=== PATIENT | female | born 1955 | race Asian ===

== ENCOUNTER 2022-08-24 06:04 | Emergency (ER) | payer MEDICARE, OTHER ==
[~2022-08-24] VITALS: Ht 149.8 cm; Wt 45.3 kg
--- NOTE | 2022-08-24 06:15 | ED Back Pain ---
General Stated Complaint: BACK PAIN Source of Information: Patient Exam Limitations: No Limitations History of Present Illness Date Seen by Provider: Aug 24, 2022 Time Seen by Provider: 06:07 Initial Comments 66-year-old female with no pertinent past medical history coming in due to bilateral flank pain radiating to her suprapubic region. Started on Tuesday, went to the urgent care and had a urinalysis done which was reportedly normal. Was sent home with Flexeril and meloxicam which she states have not been helping. Denies really ever having pain like this before. Denies any trauma, dysuria, hematuria, fever, chest pain, shortness of breath, weakness, numbness, vaginal discharge, or any other concerns. Allergies and Home Medications Allergies Coded Allergies: codeine (Verified Allergy, Unknown, 08/24/22) ondansetron (Verified Allergy, Unknown, 08/24/22) Patient Home Medication List Home Medication List Reviewed: Yes Gabapentin (Gabapentin) 100 Mg Capsule, 100 MG PO Q8H Prescribed by: GABRIELLE PATEL on 08/24/22 0700 Lidocaine (Lidocaine 5% Patch) 5 % Adh..patch, 1 EACH TP Q12H PRN for Neuropathic pain Prescribed by: GABRIELLE PATEL on 08/24/22 0700 Prednisone (Prednisone) 20 Mg Tab, 40 MG PO DAILY Prescribed by: GABRIELLE PATEL on 08/24/22 0700 Review of Systems Constitutional: No fever EENTM: no symptoms reported Respiratory: no symptoms reported Cardiovascular: no symptoms reported Gastrointestinal: no symptoms reported Genitourinary: no symptoms reported Musculoskeletal: see HPI Skin: no symptoms reported Psychiatric/Neurological: No Symptoms Reported All Other Systems Reviewed Negative Unless Noted: Yes Past Odlrsgv-Pmpgxh-Tylpba Hx Patient Social History Tobacco Use?: No Substance use?: No Alcohol Use?: No Past Medical History Surgeries: Yes Thyroidectomy Physical Exam Vital Signs Vital Signs - First Documented 08/24/22 06:10 Temp 37.0 Pulse 94 Resp 18 B/P (MAP) 143/94 (110) Pulse Ox 99 O2 Delivery Room Air Capillary Refill : Height, Weight, BMI Height: '" Weight: lbs. oz. kg; BMI Method: General Appearance: WD/WN, Mild Distress HEENT: PERRL/EOMI, Normal ENT Inspection, Pharynx Normal Neck: Full Range of Motion, Normal Inspection, Non Tender, Supple Cardiovascular: Regular Rate, Rhythm, No Edema, Normal Peripheral Pulses Respiratory: Chest Non Tender, Lungs Clear, Normal Breath Sounds, No Accessory Muscle Use, No Respiratory Distress Gastrointestinal: Normal Bowel Sounds, Non Tender; No Distended, No Guarding Back: Normal Inspection, CVA Tenderness (L), CVA Tenderness (R) Extremity: Normal Capillary Refill, Normal Inspection, Normal Range of Motion, Non Tender, No Calf Tenderness, No Pedal Edema Neurologic/Psychiatric: Alert, No Motor/Sensory Deficits, Normal Mood/Affect Skin: Normal Color, Warm/Dry Lymphatic: No Adenopathy Progress/Results/Core Measures Results/Orders Lab Results Laboratory Tests Test 08/24/22 06:28 Range/Units Urine Color YELLOW Urine Clarity CLEAR Urine pH 6.0 5-9 Urine Specific [place] 1.010 L 1.016-1.022 Urine Protein NEGATIVE NEGATIVE Urine Glucose (UA) NEGATIVE NEGATIVE Urine Ketones NEGATIVE NEGATIVE Urine Nitrite NEGATIVE NEGATIVE Urine Bilirubin NEGATIVE NEGATIVE Urine Urobilinogen 0.2 < = 1.0 MG/DL Urine Leukocyte Esterase NEGATIVE NEGATIVE Urine RBC (Auto) NEGATIVE NEGATIVE Urine RBC NONE /HPF Urine WBC 0-2 /HPF Urine Squamous Epithelial Cells RARE /HPF Urine Crystals NONE /LPF Urine Bacteria NEGATIVE /HPF Urine Casts PRESENT /LPF Urine Hyaline Casts 5-10 H /LPF Urine Mucus LARGE H /LPF Urine Culture Indicated NO My Orders Orders - GABRIELLE PATEL MD Ct Abdomen/Pelvis Wo (08/24/22 06:16) Ua Culture If Indicated (08/24/22 06:16) Ketorolac Injection (Toradol Injection) (08/24/22 06:30) Hydrocodone/Apap 5/325 Tablet (Lortab 5 (08/24/22 06:30) Ondansetron Oral Dissolve Tab (Zofran (08/24/22 06:16) Medications Given in ED Current Medications Medications Dose Ordered Sig/Julian Route Start Time Stop Time Status Last Admin Dose Admin Acetaminophen/ Hydrocodone Bitart 1 ea ONCE ONCE PO 08/24/22 06:30 08/24/22 06:31 DC 08/24/22 06:23 1 EA Ketorolac Tromethamine 15 mg ONCE ONCE IM 08/24/22 06:30 08/24/22 06:31 DC 08/24/22 06:22 15 MG Vital Signs/I&O 12/20/22 12/20/22 06:10 07:02 Temp 37.0 37.0 Pulse 94 94 Resp 18 18 B/P (MAP) 143/94 (110) 143/94 Pulse Ox 99 99 O2 Delivery Room Air Room Air Progress Progress Note : Progress Note 66-year-old female presenting for low back pain. ABCs were intact and vitals were stable on presentation. Physical exam with some CVA tenderness bilaterally. She has no midline tenderness, no history of trauma, no fever, no IV drug use, no history of cancer, no recent weight loss, no weakness, no numbness, and otherwise no red flags for low back pain. It was difficult to assess if this was musculoskeletal in nature versus potentially something such as kidney stones. Her abdomen was soft and with no pain. No urinary symptoms. Urinalysis without evidence of infection. CT abdomen pelvis negative for kidney stones or other acute abnormalities. The patient was given IM Toradol and hydrocodone while waiting for her work-up. I believe she stable for discharge with outpatient follow-up. She was sent home with strict return precautions. I recommended follow-up with orthopedics as well as her PCP as an outpatient. Diagnostic Imaging Diagonstic Imaging: CT (abd/pelvis) Comments [facility], [place] NAME: SHAWN MAYS [facility] REC#: [id number] PT STATUS: REG ER : 1955 PHYSICIAN: GABRIELLE PATEL MD ADMIT DATE: 08/24/22/ER FS Draft Date of Exam:08/24/22 CT ABDOMEN/PELVIS WO EXAMINATION: CT abdomen and pelvis without contrast. TECHNIQUE: Multiple contiguous axial images were obtained through the abdomen and pelvis without the use of intravenous contrast. All CT scans use one or more of the following dose optimizing techniques: automated exposure control, MA and/or KvP adjustment based on patient size and exam type or iterative reconstruction. HISTORY: low back pain radiating to suprapubic region COMPARISON: None available. FINDINGS: Lung bases: The lung bases are clear. Solid organs: The liver is normal. The gallbladder is surgically absent. There is no biliary ductal dilation. Pancreas is normal. Spleen is normal. Adrenal glands are normal. The kidneys are normal without visualized calculus or hydronephrosis. Bowel: The stomach and small bowel are normal without obstruction. The colon is unremarkable. No findings of acute appendicitis. Peritoneum: There is no intraperitoneal free fluid or free air. No suspicious lymphadenopathy. Vasculature: Normal without aneurysm. Musculoskeletal: No suspicious osseous lesion or compression fracture. Pelvis: The uterus is surgically absent. No adnexal mass. The urinary bladder is normal. IMPRESSION: 1. No acute abnormality in the abdomen or pelvis. Dictated on workstation # [id number] Dict: 08/24/2233 Trans: 08/24/2246 [facility] [id number] Interpreted by: JANELLE WISE DO Electronically signed by: Departure Impression Primary Impression: Back pain Qualified Codes: M54.50 - Low back pain, unspecified Disposition: 01 HOME, SELF-CARE Condition: Stable Departure-Patient Inst. Decision time for Depature: 07:05 Referrals: [facility] Patient Instructions: Low Back Pain (DC) Add. Discharge Instructions: Fortunately the CT scan does not show any significant abnormality means it is likely related to typical musculoskeletal causes for low back pain. Please follow-up with [facility] here in [email or web address] regarding this. Medicines were sent to your pharmacy to try to help with this for the next several days. Please take the medicines you are already prescribed from the urgent care on top of the medicines that we are prescribing you to try to help with the discomfort. Most low back pain takes roughly 2 weeks to start feeling better. Try to do some gentle stretching and movement at home. Scripts Prednisone (Prednisone) 20 Mg Tab 40 MG PO DAILY for 3 Days, #6 TAB 0 Refills Prov: GABRIELLE PATEL MD 08/24/22 Lidocaine (Lidocaine 5% Patch) 5 % Adh..patch 1 EACH TP Q12H PRN for Neuropathic pain MDD 2 for 14 Days, #28 PATCH 2 patches max for 12 hours, then 12 hours patch-free period. Prov: GABRIELLE PATEL MD 08/24/22 Gabapentin (Gabapentin) 100 Mg Capsule 100 MG PO Q8H for Neuropathic pain for 14 Days, #42 CAP Prov: GABRIELLE PATEL MD 08/24/22 Work/School Note: Work Release Form Date Seen in the Emergency Department: Aug 24, 2022 Return to Work: Aug 25, 2022 Restrictions: No Restrictions GABRIELLE PATEL MD Aug 24, 2022 06:15
[2022-08-24] MEDS: ONDANSETRON 4 MG (ZOFRAN) ORAL DISSOLVE TAB PO STA ×2 (06:22→06:34)
[2022-08-24] MEDS ORDERED: KETOROLAC 15 MG/ML VIAL IM ONE (06:30)
[2022-08-24] MEDS ORDERED: HYDROcodone/APAP 5 MG/325 MG (LORTAB) TAB PO ONE (06:30)
[2022-08-24 06:39] LABS: BILIRUBIN,URINE NEGATIVE (NEGATIVE); CLARITY,URINE CLEAR; COLOR,URINE YELLOW; GLUCOSE, URINE (UA) NEGATIVE (NEGATIVE); KETONES,URINE NEGATIVE (NEGATIVE); LEUKOCYTE ESTERASE ,URINE NEGATIVE (NEGATIVE); NITRITE,URINE NEGATIVE (NEGATIVE); PROTEIN,URINE NEGATIVE (NEGATIVE)
--- NOTE | 2022-08-24 06:47 | Diagnostic Imaging Report ---
EXAMINATION: CT abdomen and pelvis without contrast. TECHNIQUE: Multiple contiguous axial images were obtained through the abdomen and pelvis without the use of intravenous contrast. All CT scans use one or more of the following dose optimizing techniques: automated exposure control, MA and/or KvP adjustment based on patient size and exam type or iterative reconstruction. HISTORY: low back pain radiating to suprapubic region COMPARISON: None available. FINDINGS: Lung bases: The lung bases are clear. Solid organs: The liver is normal. The gallbladder is surgically absent. There is no biliary ductal dilation. Pancreas is normal. Spleen is normal. Adrenal glands are normal. The kidneys are normal without visualized calculus or hydronephrosis. Bowel: The stomach and small bowel are normal without obstruction. The colon is unremarkable. No findings of acute appendicitis. Peritoneum: There is no intraperitoneal free fluid or free air. No suspicious lymphadenopathy. Vasculature: Normal without aneurysm. Musculoskeletal: No suspicious osseous lesion or compression fracture. Pelvis: The uterus is surgically absent. No adnexal mass. The urinary bladder is normal. IMPRESSION: 1. No acute abnormality in the abdomen or pelvis. Dictated by: Dictated on workstation # [id number]
[2022-08-24 06:50] LABS: BACTERIA,URINE NEGATIVE /HPF; WBC,URINE 0-2 /HPF
[2022-08-24 06:51] LABS: SQUAMOUS EPITHELIAL CELL,UR RARE /HPF
[2022-08-24] MEDS ORDERED: LIDO700A45 TP (07:00)
[2022-08-24] MEDS ORDERED: PRD20T PO (07:00)
[2022-08-24] MEDS ORDERED: GABA-486 PO (07:00)
[2022-08-24 07:02] VITALS: BP 143/94
== END 2022-08-24 07:02 | disposition home or self-care (01) ==
LOC: ER FS 06:09
DX: M54.50 Low back pain, unspecified (principal)
CPT/HCPCS: 74176; 81000